=== PATIENT | female | born 1940 | race Caucasian/White ===

== ENCOUNTER 2017-02-26 17:32 | Emergency (ER) | payer BC ==
[~2017-02-26] VITALS: Ht 152.4 cm; Wt 50.0 kg
[~2017-02-26 17:32] MED LIST: ZOFRAN8 MG PO
[2017-02-26 17:34] VITALS: BP 208/112; TEMP 97.1
[2017-02-26 19:37] VITALS: PULSE 71
== END 2017-02-26 19:37 | disposition home or self-care (01) ==
LOC: COL.ER 17:32
DX: S52.502A Unspecified fracture of the lower end of left radius, initial encounter for closed fracture (principal); W01.10XA Fall on same level from slipping, tripping and stumbling with subsequent striking against unspecified object, initial encounter; Y92.414 Local residential or business street as the place of occurrence of the external cause